=== PATIENT | male | born 1990 | race Caucasian/White ===

== ENCOUNTER 2021-01-15 09:24 | Emergency (ER) | payer MEDICAID, SELFPAY ==
[~2021-01-15] VITALS: Ht 182.9 cm; Wt 122.5 kg
[2021-01-15] MEDS ORDERED: ONDANSETRON 2MG/ML, 2ML ONE (09:55)
[2021-01-15] MEDS ORDERED: SODIUM CHLORIDE 0.9% 1,000ML IVBOLUS ONE (10:00)
[2021-01-15] MEDS ORDERED: ONDANSETRON 2MG/ML, 2ML IVPush ONE (10:00)
[2021-01-15] MEDS ORDERED: SODIUM CHLORIDE FLUSH 10ML SYR IVF ONE (10:00)
--- NOTE | 2021-01-15 10:00 | NUR ---
PIV PLACED FROM WHICH LABS WERE DRAWN- THEN MEDICATED PER EMNAR WITH ZOFRAN/1L NS
--- NOTE | 2021-01-15 10:08 | NUR ---
still vomiting post zofran. provider made aware Patient reminded of need for ua when able to void
[2021-01-15] MEDS ORDERED: PROMETHAZINE 25 MG/ML, 1ML ONE (10:14)
--- NOTE | 2021-01-15 10:18 | NUR ---
MEDICATED PER EMAR FOR CONTINUED NAUSEA
[2021-01-15 10:19] LABS: ALANINE AMINOTRANSFERASE 59 U/L (12-78); ALBUMIN 4.8 g/dL (3.4-5.0); ANION GAP 8 mmol/L (5-15); CALCIUM 9.2 mg/dL (8.5-10.1); CHLORIDE 106 mmol/L (98-107); CREATININE 1.12 mg/dL (0.7-1.3)
[2021-01-15 10:22] LABS: ALKALINE PHOSPHATASE 82 U/L (45-117); BILIRUBIN,TOTAL 1.3 mg/dL (0.2-1.0); TOTAL PROTEIN 8.7 g/dL (6.4-8.2)
[2021-01-15 10:28] LABS: BASOPHILS % (AUTO) 1 % (0-1); EOSINOPHILS % (AUTO) 1 % (1-7); LYMPHOCYTES % (AUTO) 29 % (22-44); MEAN CORPUSCULAR HEMOGLOBIN 29.1 pg (27.5-34.5); MEAN CORPUSCULAR HGB CONC 34.8 g/dL (33.2-36.2); MEAN PLATELET VOLUME 8.8 fL (7.4-10.4); MONOCYTES % (AUTO) 12 % (2-9); NEUTROPHILS % (AUTO) 57 % (42-75); PLATELET COUNT 407 x10^3/uL (130-400); RED BLOOD COUNT 6.35 x10^6/uL (4.38-5.82); RED CELL DISTRIBUTION WIDTH 14.3 % (9.4-14.8)
[2021-01-15] MEDS ORDERED: PROMETHAZINE 25 MG/ML, 1ML IM ONE (10:30)
[2021-01-15 10:31] LABS: MD NO
--- NOTE | 2021-01-15 10:40 | NUR ---
REMAIN NAUSEATED, NOW WITH LLQ PAIN UA SENT VITAL UPDATES LITER OF NS ALMOST COMPLETE PATIENT UPDATED ON ESTIMATED POC
[2021-01-15] MEDS ORDERED: MAALOX/HYOSCYAMINE/LIDOCAINE 45 ML BTL PO ONE (11:00)
[2021-01-15] MEDS ORDERED: FAMOTIDINE 20 MG/2 ML IVPush ONE (11:00)
[2021-01-15] MEDS ORDERED: LACTATED RINGERS 1,000 ML IVBOLUS ONE (11:00)
[2021-01-15] MEDS ORDERED: FAMOTIDINE 20 MG/2 ML ONE (11:02)
[2021-01-15] MEDS ORDERED: MAALOX/HYOSCYAMINE/LIDOCAINE 45 ML BTL ONE (11:02)
[2021-01-15 11:06] LABS: MICROSCOPIC INDICATED
--- NOTE | 2021-01-15 11:36 | NUR ---
With reassessment nausea/pain improved to 0/10. Resting comfortably
[2021-01-15 12:04] VITALS: BP 127/72
== END 2021-01-15 12:07 | disposition home or self-care (01) ==
LOC: ED 10:10
DX: K52.9 Noninfective gastroenteritis and colitis, unspecified (principal); R11.2 Nausea with vomiting, unspecified; R10.9 Unspecified abdominal pain
CPT/HCPCS: 36415; 80053; 81001; 83690; 85025; 87086; 96361; 96372; 96374; 96375; 99284; J2405; J2550; J7030; J7120